=== PATIENT | female | born 1995 | race Caucasian/White ===

== ENCOUNTER → 2019-11-23 14:25 | Outpatient (CLI) | payer BC, SELFPAY ==
--- NOTE | ~2019-11-23 | US_ITS ---
US breast LT complete DATE: 11/23/2019 14:38 INDICATION: Left breast pain TECHNIQUE: Complete left breast ultrasound examination COMPARISON: None FINDINGS: No suspicious solid lesion or shadowing is detected. No cyst is identified. IMPRESSION: BI-RADS 1: Negative Reviewed, dictated and finalized at [facility]. Reviewed, dictated and finalized at location [facility]. ASSEMBLER IMPRESSION: BI-RADS 1: Negative
== END ==
PROVIDERS: Visit Provider Advanced Practice Midwife
DX: N64.4 Mastodynia (principal)
CPT/HCPCS: 76641

== ENCOUNTER 2020-07-20 15:05 | Emergency (ER) | payer BC, SELFPAY ==
--- NOTE | 2020-07-20 15:22 | ED.URI ---
HPI - URI/Sore Throat General Chief Complaint: Abdominal Pain Stated Complaint: pain with deep breaths Time Seen by Provider: 07/20/20 15:22 Source: patient and RN notes reviewed History of Present Illness HPI Narrative: Patient is a 25-year-old female who presents to the urgent care with complaints of pain with deep breathing to the right upper abdomen. Patient states that she is noticed that occur very briefly in the past but nothing has lasted or been very consistent like this last episode. Patient states that last episode started last night after eating spicy hot stuffed red peppers. Patient denies of any history of gallbladder issues. Denies of any pain through to the back or down the right arm. Denies of any nausea or vomiting. States that she has never related her diet to symptoms. Patient currently states that she is having no pain at this time until she takes a deep breath. Denies of any fever, nausea, vomiting. States that she has taken Tums without any improvement. Patient also stated that she take mag citrate assuming that she may be constipated. Otherwise, no other acute complaints. No acute distress noted. Patient aware of the plan of care. Some parts of this dictation were generated by voice recognition software and may contain typographical and/or grammatical inaccuracies. Related Data Home Medications Medication Instructions Recorded Confirmed norgestimate-ethinyl estradiol 1 tablet PO DAILY 07/20/20 07/20/20 Allergies Allergy/AdvReac Type Severity Reaction Status Date / Time No Known Allergies Allergy Verified 07/20/20 15:39 Review of Systems Review of Systems: Narrative: CONSTITUTIONAL: Denies fever, chills, or sweats. EYES: Denies visual changes, redness, or discharge. ENT: Denies rhinorrhea, congestion, sore throat, or otalgia. CARDIOVASCULAR: Denies chest pain, palpitations, or edema. RESPIRATORY: Denies cough or dyspnea. GASTROINTESTINAL: Reports of upper right abdominal pain with deep breathing GENITOURINARY: Denies dysuria or hematuria. SKIN: Denies rash or itching. MUSCULOSKELETAL: Denies back pain, joint pain, or myalgia. NEUROLOGIC: Denies headache, numbness, or weakness. All other systems reviewed are negative, except as documented in HPI. PMFSH Comments At the time of my signature, I reviewed and agree with the nursing past medical, surgical, social, and family history. There is no relevant family history pertinent to the patient complaint. Exam Narrative: Exam Narrative: GENERAL: This is a well-nourished, well-developed patient, in no apparent distress. HEAD: normocephalic, atraumatic. EYES: PERRL. Sclera clear/white. Vision is grossly intact. EARS: External ears normal, auditory canals clear and without drainage, TMs normal without perforation. Hearing grossly intact. NOSE: External nose normal with no obvious nasal discharge, nares without redness, no rhinorrhea. THROAT: Mucous membranes moist, posterior pharynx clear. NECK: Neck supple CARDIOVASCULAR: Regular rate and rhythm without murmurs, gallops, or rubs. RESPIRATORY: Clear to auscultation. Breath sounds equal bilaterally. No wheezes, rales, or rhonchi. GASTROINTESTINAL: Abdomen soft, non-tender, nondistended. Bowel sounds are active. No hepato-splenomegaly, or palpable masses. No guarding. Pain not reproducible with palpation. Negative obturator SKIN: warm, intact with no suspicious lesions or rash, good texture and turgor. NEURO: awake, alert, and oriented to person, place and time. There were no obvious focal neurologic abnormalities. EXTREMITIES: No clubbing, cyanosis, or edema. Course Vital Signs Vital signs: Vital Signs Temperature 98.3 F 07/20/20 15:25 Pulse Rate 115 H 07/20/20 15:25 Respiratory Rate 07/20/20 15:25 Blood Pressure 135/88 07/20/20 15:25 Pulse Oximetry 100 07/20/20 15:25 Temperature 98.3 F 07/20/20 15:25 Pulse Rate 115 H 07/20/20 15:25 Respiratory Rate 07/20/20 1
[2020-07-20 15:25] VITALS: BP 135/88; PULSE 115; RESP 18; TEMP 36.8; O2SAT 100
== END 2020-07-20 15:55 | disposition home or self-care (01) ==
PROVIDERS: Emergency Provider Nurse Practitioner Family
DX: R10.11 Right upper quadrant pain (principal); K21.9 Gastro-esophageal reflux disease without esophagitis
CPT/HCPCS: 99201; G0463

== ENCOUNTER 2023-09-23 15:53 | Outpatient (CLI) | payer BC, SELFPAY ==
[2023-09-23] VITALS (9 sets, daily range): BP systolic 123–136; BP diastolic 78–97; PULSE 87–100
[2023-09-23 16:28] LABS: Basophils Percent Auto 0.4 % (0.2-1.2); Eosinophils Absolute Auto 0.1 K/mm3 (0-0.3); Eosinophils Percent Auto 0.6 % (0-4.4); Hematocrit 35.9 % (37.0-47.0); Hemoglobin 10.5 g/dL (12.0-15.0); Immature Granulocyte Absolute 0.07 K/mm3 (0.00-0.031); Immature Granulocyte Percent A 0.6 % (0-0.5); Lymphocytes Absolute Auto 1.84 K/mm3 (0.9-3.2); Lymphocytes Percent Auto 16.9 % (18.3-44.2); Mean Corpuscular HGB Conc 29.2 g/dl (32-36); Mean Corpuscular Hemoglobin 23.9 pg (26-34); Mean Corpuscular Volume 81.8 fl (80-100); Mean Platelet Volume 10.1 fl (7.4-10.4); Monocytes Absolute Auto 1.1 K/mm3 (0.1-0.6); Monocytes Percent Auto 9.7 % (2.6-8.5); Neutrophils Absolute Auto 7.8 K/mm3 (1.3-6.7); Neutrophils Percent Auto 71.8 % (45.5-73.1); Platelet Count Result 295 k/mm3 (150-375); Red Blood Count 4.39 M/mm3 (4.2-5.4); Red Cell Distribution Width 15.1 % (11.5-14.5); White Blood Count 10.9 K/mm3 (4.5-10.0)
[2023-09-23 16:37] LABS: Alanine Aminotransferase 17 U/L (6-35); Albumin Level 3.5 g/dL (3.5-5.1); Alkaline Phosphatase 179 U/L (38-126); Anion Gap 9 mmol/L (8-16); Aspartate Amino Transferase 23 U/L (14-36); Bilirubin,Total 0.4 mg/dL (0.2-1.3); Blood Urea Nitrogen 9 mg/dL (7-17); Calcium 9.3 mg/dL (8.4-10.2); Carbon Dioxide 22 mmol/L (22-30); Chloride 104 mmol/L (98-107); Estimated Glomerular Filt Rate > 60; Glucose 103 mg/dL (65-110); Potassium 4.2 mmol/L (3.4-5.0); Sodium 135 mmol/L (137-145); Uric Acid 3.8 mg/dL (2.5-7.5)
[2023-09-23 16:46] LABS: Appearance Urine Cloudy (Clear); Bacteria Urine 3+ /hpf; Bilirubin Urine Negative (Negative); Blood Urine Negative (Negative); Color Urine Yellow (Yellow); Glucose Urine UA Negative (Negative); Ketones Urine Negative (Negative); Leukocyte Esterase Ur 2+ LEU/UL (NEGATIVE); Need Manual Microscopic Reviewed; Nitrate Urine Negative (Negative); Protein Urine Trace mg/dL (Negative); RBC Urine 0-2 /hpf (0-2); Specific Grav Ur 1.014 (1.001-1.035); Squamous Epithelial Cell Urine Few /hpf (Few); Urobilinogen Urine 0.2 mg/dL (<2.0); WBC Urine 51-100 /hpf (0-3)
[2023-09-23 16:47] LABS: Add Urine Microscopic? YES
--- NOTE | 2023-09-23 17:00 | PC.NURSE ---
tracing reviewed with Dr. Thomason. MD ibarra with monitoring being discontinued. Pt P/C ratio has not resulted yet, however all other labs reported to Dr. Miller. HERNANDEZ would like pt to continue receiving blood pressure monitoring until the ratio comes back.
[2023-09-23 18:03] LABS: Creatinine Urine 102.9 mg/dL; Total Protein Urine Random 27 mg/dL; Ur Ttl Prot Creatinine Ratio 0.26 mg/mg (0-0.20)
== END 2023-09-23 18:12 | disposition home or self-care (01) ==
LOC: ANHOBOP 15:57 → ANHOBPP 15:57
PROVIDERS: Visit Provider Obstetrics & Gynecology
DX: O13.9 Gestational [pregnancy-induced] hypertension without significant proteinuria, unspecified trimester (principal)
CPT/HCPCS: 36415; 59025; 80053; 81001; 82570; 84156; 84550; 85025; 87086; 99199

== ENCOUNTER 2023-09-24 13:04 | Inpatient (IN) | payer BC, SELFPAY ==
[2023-09-17] MEDS: OXYTOCIN 30 UNITS/NS 500 ML 30 UNITS/500 ML BAG 4 UNITS IV CONT (16:00)
[2023-09-24] VITALS (114 sets, daily range): BP systolic 87–141; BP diastolic 45–96; PULSE 68–114; TEMP 36.6–36.7; O2SAT 95–100; BMI 35.5
[2023-09-24 14:14] LABS: Basophils Percent Auto 0.3 % (0.2-1.2); Eosinophils Absolute Auto 0.1 K/mm3 (0-0.3); Eosinophils Percent Auto 0.9 % (0-4.4); Hematocrit 36.2 % (37.0-47.0); Hemoglobin 10.9 g/dL (12.0-15.0); Immature Granulocyte Absolute 0.09 K/mm3 (0.00-0.031); Immature Granulocyte Percent A 0.8 % (0-0.5); Lymphocytes Absolute Auto 2.16 K/mm3 (0.9-3.2); Lymphocytes Percent Auto 18.2 % (18.3-44.2); Mean Corpuscular HGB Conc 30.1 g/dl (32-36); Mean Corpuscular Volume 79.7 fl (80-100); Monocytes Absolute Auto 1.2 K/mm3 (0.1-0.6); Monocytes Percent Auto 10.3 % (2.6-8.5); Neutrophils Absolute Auto 8.3 K/mm3 (1.3-6.7); Neutrophils Percent Auto 69.5 % (45.5-73.1); Platelet Count Result 306 k/mm3 (150-375); Red Blood Count 4.54 M/mm3 (4.2-5.4); White Blood Count 11.9 K/mm3 (4.5-10.0)
--- NOTE | 2023-09-24 14:15 | LDADM ---
This patient, Camille Mijares, was admitted to Labor/Delivery/Recovery 105 on 09/24/23 at 13:04. Plans for labor, pain management and were discussed with patient. Patient/family oriented to hospital policies and general routines including ID bracelet, bed and alarms, visiting hours, pain management, procedures, bathroom and other care routines, personal items, smoking policy, room service/diet and guest tray routines, infant security routines, and visiting hours. Patient/Family are encouraged to report perceived risks to care and to ask questions if they do not understand what they are told or what they should do. See OBIX for further documentation.
[2023-09-24 14:24] LABS: Alanine Aminotransferase 19 U/L (6-35); Albumin Level 3.4 g/dL (3.5-5.1); Alkaline Phosphatase 203 U/L (38-126); Anion Gap 9 mmol/L (8-16); Aspartate Amino Transferase 23 U/L (14-36); Bilirubin,Total 0.4 mg/dL (0.2-1.3); Blood Urea Nitrogen 9 mg/dL (7-17); Calcium 9.6 mg/dL (8.4-10.2); Carbon Dioxide 20 mmol/L (22-30); Chloride 105 mmol/L (98-107); Estimated Glomerular Filt Rate > 60; Glucose 84 mg/dL (65-110); Potassium 4.2 mmol/L (3.4-5.0); Sodium 134 mmol/L (137-145)
[2023-09-24] MEDS: LACTATED RINGERS 1,000 ML 125 ML IV CONT ×2 (15:05→23:20)
--- NOTE | 2023-09-24 16:39 | WPDANESEPP ---
Anes - Eval Pre Procedure Procedure: labor epidural Date/Time: 09/24/23 16:39 Pre Op Diagnosis: IOL Patient Data Age: 28 Gender: F Height: 1.65 m Weight: 96.8 kg Last Vital Signs Pulse 95 09/24/23 16:31 BP 130/96 H 09/24/23 16:31 O2 Del Method Room Air 09/24/23 14:15 Allergies Allergy/AdvReac Type Severity Reaction Status Date / Time No Known Allergies Allergy Verified 07/20/20 15:39 Home Medications Medication Instructions Recorded Confirmed Type cetirizine 10 mg tablet (Zyrtec) 10 mg PO DAILY 09/24/23 09/24/23 History levothyroxine 25 mcg tablet 25 mcg PO DAILY 09/24/23 09/24/23 History vit no.95-ferrous 1 tablet PO DAILY 09/24/23 09/24/23 History fumarate 28 mg-folic acid 800 mcg tablet () Laboratory Tests 09/24/23 09/24/23 13:57 13:58 WBC 11.9 H K/mm3 (4.5-10.0) RBC 4.54 M/mm3 (4.2-5.4) Hgb 10.9 L g/dL (12.0-15.0) Hct 36.2 L % (37.0-47.0) MCV 79.7 L fl (80-100) MCH 24.0 L pg (26-34) MCHC 30.1 L g/dl (32-36) RDW 15.0 H % (11.5-14.5) Plt Count 306 k/mm3 (150-375) MPV 10.0 fl (7.4-10.4) Immature Gran % (Auto) 0.8 H % (0-0.5) Neut % (Auto) 69.5 % (45.5-73.1) Lymph % (Auto) 18.2 L % (18.3-44.2) [place] % (Auto) 10.3 H % (2.6-8.5) Eos % (Auto) 0.9 % (0-4.4) Baso % (Auto) 0.3 % (0.2-1.2) Lymph # (Auto) 2.16 K/mm3 (0.9-3.2) [place] # (Auto) 1.2 H K/mm3 (0.1-0.6) Eos # (Auto) 0.1 K/mm3 (0-0.3) Baso # (Auto) 0.0 K/mm3 (0.0-0.1) Abs Immat Gran (auto) 0.09 H K/mm3 (0.00-0.031) Absolute Neuts (auto) 8.3 H K/mm3 (1.3-6.7) Absolute Nucleated RBC 0.0 K/mm3 (0.0-0.012) Nucleated RBC % 0.0 % (0.0-0.2) Sodium 134 L mmol/L (137-145) Potassium 4.2 mmol/L (3.4-5.0) Chloride 105 mmol/L (98-107) Carbon Dioxide 20 L mmol/L (22-30) Anion Gap 9 mmol/L (8-16) BUN 9 mg/dL (7-17) Creatinine 0.60 L mg/dL (0.7-1.0) Estim Creat Clear Calc Not Reportable Estimated GFR > 60 (59 - ) Glucose 84 mg/dL (65-110) Uric Acid 4.0 mg/dL (2.5-7.5) Calcium 9.6 mg/dL (8.4-10.2) Total Bilirubin 0.4 mg/dL (0.2-1.3) AST 23 U/L (14-36) ALT 19 U/L (6-35) Alkaline Phosphatase 203 H U/L (38-126) Total Protein 7.0 g/dL (6.3-8.2) Albumin 3.4 L g/dL (3.5-5.1) RPR Pending Blood Type O Positive Antibody Screen Negative Patient hx anesthesia problems: none Family hx anesthesia problems: none Results Review: All pre-operative results and documents have been reviewed as part of the pre-operative evaluation. [facility] Past Medical History Medical History (Updated 09/24/23 @ 16:45 by Misty Mueller CRNA) GERD (gastroesophageal reflux disease) Obese PIH ( induced hypertension) Family History Family History Mother Pacemaker Social History Social History Smoking status: Never smoker Second hand tobacco smoke exposure: No Substance use: never Lack of Transportation: No Lack of Food: Never True Current Housing: I Have Housing Concerned About Future Housing: No Difficulty Paying Gas/Electric Bills: No Difficulty Paying for Meds: No Currently Unemployed: No Education: Bachelor's Degree Difficulty w/ Childcare or Family Care: No Spiritual care concerns: No Exam Day of Procedure 09/24/23 16:39 Patient weight: obese Heart: regular rate and rhythm Lungs: normal air movement Airway: Mallampati scale Neurological: alert and oriented
--- NOTE | 2023-09-24 17:44 | PM.IMHP ---
H&P: HPI History of Present Illness Date/Time: 09/24/23 17:44 Chief Complaint: Induction of labor, gestational HTN Narrative: Patient presents for induction of labor indicated for gestational HTN. She denies symptoms of preeclampsia. PC ratio on 09/23 was 0.26. BPs 120s-140s/80s-90s over the past two days, meeting criteria for gHTN. Induction started with pitocin. Review of Systems Review of Systems: All systems reviewed & are unremarkable except as noted in HPI and below PMFSH Past Medical History Medical History GERD (gastroesophageal reflux disease) Obese PIH ( induced hypertension) Family History Family History Mother Pacemaker Social History Social History Smoking status: Never smoker Second hand tobacco smoke exposure: No Substance use: never Lack of Transportation: No Lack of Food: Never True Current Housing: I Have Housing Concerned About Future Housing: No Difficulty Paying Gas/Electric Bills: No Difficulty Paying for Meds: No Currently Unemployed: No Education: Bachelor's Degree Difficulty w/ Childcare or Family Care: No Spiritual care concerns: No Meds Home Medications and Allergies Home Medications Medication Instructions Recorded Confirmed Type cetirizine 10 mg tablet (Zyrtec) 10 mg PO DAILY 09/24/23 09/24/23 History levothyroxine 25 mcg tablet 25 mcg PO DAILY 09/24/23 09/24/23 History vit no.95-ferrous 1 tablet PO DAILY 09/24/23 09/24/23 History fumarate 28 mg-folic acid 800 mcg tablet () Allergies Allergy/AdvReac Type Severity Reaction Status Date / Time No Known Allergies Allergy Verified 07/20/20 15:39 Vital Signs Vital Signs - 24 hr 09/24/23 13:56 09/24/23 14:30 09/24/23 15:01 Pulse Rate 95 102 H 92 Blood Pressure 127/80 133/81 133/81 Oxygen Delivery 09/24/23 15:30 09/24/23 16:31 09/24/23 17:01 Pulse Rate 94 95 88 Blood Pressure 138/84 130/96 H 126/79 Oxygen Delivery 09/24/23 14:15 Pulse Rate Blood Pressure Oxygen Delivery Room Air Exam Const: General: comfortable, no acute distress and in distress HENMT: Face/Nose/Sinus: Normal nares present Mouth: Yes moist mucous membranes Eyes: General: appearance normal, both eyes and all related structures Neck: Neck: supple Resp: Effort & Inspection: normal respiratory effort Cardio: Rate: regular rate GI: GI Palp: Yes Soft to palpation Skin: General skin exam: normal color and no rashes or lesions noted Neuro: Speech: normal speech Sensory Exam: normal sensation Psych: Mental Status: mental status grossly normal H&P: Results Labs Labs: Short CBC 09/24/23 Range/Units 13:57 WBC 11.9 H (4.5-10.0) K/mm3 Hgb 10.9 L (12.0-15.0) g/dL Hct 36.2 L (37.0-47.0) % Plt Count 306 (150-375) k/mm3 BMP 09/24/23 13:57 Sodium 134 L Potassium 4.2 Chloride 105 Carbon Dioxide 20 L BUN 9 Creatinine 0.60 L Glucose 84 Calcium 9.6 Liver Function 09/24/23 Range/Units 13:57 Total Bilirubin 0.4 (0.2-1.3) mg/dL AST 23 (14-36) U/L ALT 19 (6-35) U/L Alkaline Phosphatase 203 H (38-126) U/L Albumin 3.4 L (3.5-5.1) g/dL Assessment and Plan Assessment and plan (1) Gestational HTN: Code(s): O13.9 - Gestational [-induced] hypertension without significant proteinuria, unspecified trimester Status: Acute Assessment and Plan: Induction of labor for gHTN. Monitor closely for signs/symptoms of preeclampsia. Monitor BP closely. Plan AROM performed at 1745 with return of clear fluid. Continue pitocin per protocol.
[2023-09-24] MEDS: CALCIUM CARBONATE (TUMS) 500 MG (200 MG ELEMENTAL) PO (22:29)
[2023-09-25] VITALS (259 sets, daily range): BP systolic 60–145; BP diastolic 45–105; PULSE 74–145; RESP 11–20; TEMP 36.4–37.2; O2SAT 90–100
[2023-09-25] MEDS: CALCIUM CARBONATE (TUMS) 500 MG (200 MG ELEMENTAL) 600 MG PO (05:09)
[2023-09-25] MEDS: diphenhydrAMINE HCl INJ 50 MG/ML VIAL 25 MG IV PUSH (05:10)
--- NOTE | 2023-09-25 05:47 | PM.OBPNLAB ---
Pain Control Date/time seen: 09/25/23 05:47 SVE /0, IUPC placed, pt c/o tail bone pain, anesthesia notified
[2023-09-25] MEDS: LACTATED RINGERS 1,000 ML 125 ML IV CONT ×3 (07:18→13:30)
[2023-09-25] MEDS: AMPICILLIN 2 GM/NS 100 ML 2 GM/100 ML BAG IVPB (11:34)
--- NOTE | 2023-09-25 12:22 | PM.OBPNLAB ---
Pain Control Date/time seen: 09/25/23 12:22 Pelvic Exam Dilation (cm): 8 Effacement (%): 90 station: 0 Amniotic membrane status: Ruptured Contractions Monitor mode: Internal Contraction frequency: 2 Contraction pattern: Regular Assessment and Plan Comments: At bedside. Patient has been 8cm since 0600 with inadequate contractions. Have attempted spinning babies, pit break, redose of epidural, however patient continues to have left sided pain and no cervical change. SVE performed, with anterior swelling. IUPC in position, inadequate MVUs on 18 of pitocin. status category I. Discussed options with patient including continued with induction of labor as status is reassuring vs c section. Patient desires primary c section. r/b/a discussed, anesthesia aware.
[2023-09-25] MEDS: AZITHROMYCIN 500 MG/NS 250 ML 500 MG/250 ML BAG 250 MG IVPB (12:30)
--- NOTE | 2023-09-25 12:34 | P.PNAN_ITS ---
Anes - Eval Final PreProcedure Day of Procedure 09/25/23 12:34 Patient weight: obese Heart: regular rate and rhythm Lungs: clear to auscultation Airway: Mallampati scale class II Neurological: alert and oriented ASA classification: III Emergent: no Anesthetic plan: proceed Anesthesia type and monitoring: regional spinal and standard monitoring Other findings: plan SAB epid inadequate for C/S Results Review: All pre-operative results and documents have been reviewed as part of the pre- operative evaluation. Informed Consent: The patient's anesthetic plan and its attendant risks and benefits were discussed with the patient/family/POA. Questions were solicited and answers provided to the satisfaction of the patient/family/POA.
[2023-09-25] MEDS: ceFAZolin 2 GM/D5W 50 ML 2 GM/50 ML BAG IVPB (12:57)
[2023-09-25 13:18] LABS: Rapid Plasma Reagin Non-Reactive (NonReactive)
[2023-09-25] MEDS: KETOROLAC 30 MG/ML VIAL (*BKC) IV PUSH (14:02)
--- NOTE | 2023-09-25 14:05 | P.PCNOB_ITS ---
OB - Delivery Note Procedure Delivery date: 09/25/23 Pre-op diagnosis: Arrest of Dilation and Gestational Hypertension Post-op Diagnosis: Same Induction method: Per Pitocin Protocol Delivery augmentation: Rupture of Membranes Delivery monitor: External FHT and Internal Uterine Prior to decision for section, ACOG/SMFM labor guidelines were considered and discussed with the patient and staff. Decision made to proceed with the section.: Yes Procedure Performed: Primary Surgeon: Sy Thomason MD Anesthesia type: Spinal Description of Procedure/Findings: The patient was taken to the operating room where she was placed in the dorsal supine position with a leftward tilt. The electronic monitor was placed and heart rate was found to be reassuring. She was prepped and draped in the normal sterile fashion, and anesthesia was checked to be adequate. A Pfannenstiel skin incision was made with the scalpel and carried through to the underlying layer of fascia with the scalpel. The fascia was incised in the midline and the incision extended laterally with the Dorman scissors. The superior aspect of the fascial incision was then grasped with Jonathan clamps, elevated, and the underlying rectus muscles dissected off bluntly. Attention was then turned to the inferior aspect of the fascial incision, which in similar fashion was grasped, elevated, and the rectus muscles dissected off.? The rectus muscles were then in the midline, and the peritoneum entered bluntly. The peritoneal incision was extended superiorly and inferiorly with good visualization of the bladder. The bladder blade was then inserted and the vesicouterine peritoneum identified, grasped with a Peon clamp, and entered sharply with the Metzenbaum scissors. The incision was extended laterally and the bladder flap created digitally. With the bladder blade providing retraction and visualization, the lower uterine segment was incised in a transverse fashion with the scalpel. The uterine incision was then extended laterally. The bladder blade was removed and the 's head was elevated and delivered atraumatically. The remainder of the was then delivered without difficulty, and the 's nose and mouth were suctioned with the bulb suction. The umbilical cord was doubly clamped and cut. The was then handed off to the waiting nursing staff. Specimens then obtained as listed below. The placenta was then removed manually and the uterus was exteriorized and cleared of all clots and debris. The uterine incision was repaired with 0- Monocryl in a running, interlocked fashion. A second layer of the same suture imbricated and obtained excellent hemostasis. The posterior cul-de-sac was manually cleared of all clots and debris. The uterus was returned to the abdomen. The gutters were then manually cleared of all clots The fascia was reapproximated with 0-Vicryl in a running fashion. The subcutaneous tissues were irrigated with warmed normal saline, and hemostasis was assured. The skin was closed with 4-0 Biosyn in a subcuticular stitch and skin glue was applied. Fundal pressure was applied to express remaining intrauterine clots and debris. The patient tolerated the procedure well. Sponge, lap, and needle counts were correct times three per nursing. The patient was taken to the recovery room in stable condition. Specimen: No Estimated Blood Loss: 660 [place] Baby Weeks of gestation at delivery: 39 Weight (pounds): 9 Weight (ounces): 10 presentation: vertex position: Right Occiput Posterior Placenta delivery description: Manual Removal
--- NOTE | 2023-09-25 14:38 | PC.NURSE ---
heart tones obtained in OR after spinal placement and before prepping patient for section. FHT 135 at 1308.
[2023-09-25] MEDS: OXYTOCIN 30 UNITS/NS 500 ML 30 UNITS/500 ML BAG 125 UNITS IV CONT (15:02)
--- NOTE | 2023-09-25 16:18 | OBPPTRN ---
Patient transferred to post room # 288 via stretcher. Support person present. Oriented to unit, room, information board, rooming in, admission packet and security measures. Patient verbalizes understanding.
[2023-09-26 05:30] VITALS: BP 101/64; PULSE 103; RESP 18; TEMP 36.6; O2SAT 97
[2023-09-26] MEDS: IBUPROFEN 600 MG TABLET PO ×3 (05:38→21:30)
[2023-09-26] MEDS: HYDROcodone/acetaminophen (*CRX) 5-325 MG TABLET 1 TAB PO ×3 (05:38→21:30)
[2023-09-26 06:29] LABS: Basophils Percent Auto 0.3 % (0.2-1.2); Eosinophils Absolute Auto 0.1 K/mm3 (0-0.3); Eosinophils Percent Auto 0.9 % (0-4.4); Hematocrit 28.6 % (37.0-47.0); Hemoglobin 8.6 g/dL (12.0-15.0); Immature Granulocyte Absolute 0.08 K/mm3 (0.00-0.031); Immature Granulocyte Percent A 0.5 % (0-0.5); Lymphocytes Absolute Auto 1.74 K/mm3 (0.9-3.2); Lymphocytes Percent Auto 11.3 % (18.3-44.2); Mean Corpuscular HGB Conc 30.1 g/dl (32-36); Mean Corpuscular Hemoglobin 24.1 pg (26-34); Mean Corpuscular Volume 80.1 fl (80-100); Mean Platelet Volume 10.1 fl (7.4-10.4); Monocytes Absolute Auto 1.4 K/mm3 (0.1-0.6); Monocytes Percent Auto 8.8 % (2.6-8.5); Neutrophils Percent Auto 78.2 % (45.5-73.1); Platelet Count Result 216 k/mm3 (150-375); Red Blood Count 3.57 M/mm3 (4.2-5.4); Red Cell Distribution Width 15.5 % (11.5-14.5); White Blood Count 15.4 K/mm3 (4.5-10.0)
[2023-09-26] MEDS: SIMETHICONE 80 MG TAB.CHEW PO ×3 (07:35→14:02)
[2023-09-26] MEDS: LORATADINE 10 MG TABLET PO (07:35)
[2023-09-26] MEDS: DOCUSATE SODIUM 100 MG CAPSULE PO ×2 (07:35→17:19)
[2023-09-26] MEDS: LEVOTHYROXINE SODIUM 25 MCG TABLET PO (07:35)
[2023-09-26 08:00] VITALS: PULSE 84; RESP 18; O2SAT 99
[2023-09-26 08:50] VITALS: BP 94/58; PULSE 84; RESP 18; TEMP 36.5; O2SAT 99
--- NOTE | 2023-09-26 10:10 | WPDANLDPN2 ---
Anes-Prog Note L&D Date/Time: 09/26/23 10:10 Comfortable throughout: section Neuraxial method: spinal Epidural/Spinal procedure site: clean & non-tender Neuro status: Neuro function grossly intact. Cardiovascular status: normal Respiratory status: normal Airway patency: baseline Mental status: baseline Post-Op hydration status: normal Vital Signs: Last Vital Signs Temp 97.9 F 09/26/23 05:30 Pulse 103 H 09/26/23 05:30 Resp 18 09/26/23 05:30 BP 101/64 09/26/23 05:30 Pulse Ox 97 09/26/23 05:30 O2 Del Method Room Air 09/25/23 16:00 Pain score (VAS): 2 I/O: Intake & Output 09/25/23 09/26/23 09/26/23 23:59 07:59 15:59 Intake Total 1200 Output Total 350 2800 Balance -350 -1600 Post-procedural complaints: pruritis mild, no treatment Patient feedback: Patient satisfied with anesthetic care.
--- NOTE | 2023-09-26 10:11 | WPDANLDNPN2 ---
Anes-Prog Note L&D-Neuraxial Date/Time: 09/26/23 10:11 Neuraxial medications: intrathecal PF morphine Opiod-related complaints: pruritis mild, no treatment Patient feedback: Patient satisfied with post-operative pain management.
[2023-09-26] MEDS: MULTIVIT/MIN/PREN/FOL AC/IRON TABLET 1 TAB PO (10:50)
[2023-09-26] MEDS: HYDROcodone/acetaminophen (*CRX) 10-325 MG TABLET 1 TAB PO ×2 (10:50→14:00)
[2023-09-26] MEDS: POLYSACCHARIDE IRON COMPLEX 150 MG CAPSULE PO ×2 (10:50→17:18)
[2023-09-26] MEDS: LIDOCAINE 5% PATCH 1 PATCH TRANSDERM (10:51)
[2023-09-26 12:30] VITALS: BP 108/69; PULSE 107; RESP 16; TEMP 36.8; O2SAT 97
--- NOTE | 2023-09-26 12:30 | P.PNOB_ITS ---
OB - PN: Subj Subjective Date/time seen: 09/26/23 08:00 Interval history: Doing well, POD#1 Tolerating general diet Pain well controlled Not yet passing flatus Voiding spontaneously Baby doing well, working on feeding, desires circ OB - PN: Obj Data Labs 09/26/23 05:47 09/24/23 13:57 Labs: Laboratory Results - last 24 hr 09/24/23 09/26/23 13:57 05:47 WBC 15.4 H RBC 3.57 L Hgb 8.6 L Hct 28.6 L MCV 80.1 MCH 24.1 L MCHC 30.1 L RDW 15.5 H Plt Count 216 MPV 10.1 Immature Gran % (Auto) 0.5 Neut % (Auto) 78.2 H Lymph % (Auto) 11.3 L [place] % (Auto) 8.8 H Eos % (Auto) 0.9 Baso % (Auto) 0.3 Lymph # (Auto) 1.74 [place] # (Auto) 1.4 H Eos # (Auto) 0.1 Baso # (Auto) 0.0 Abs Immat Gran (auto) 0.08 H Absolute Neuts (auto) 12.0 H Absolute Nucleated RBC 0.0 Nucleated RBC % 0.0 RPR Non-reactive OB - PN A/P Plan day: 1 Plan: routine care Comments: Desires circ, baby working on feeding so not cleared for circ today. Time Spent With Patient Time: Total time spent is greater than 50% in coordination of care (as documented) at patient's floor/unit and/or counseling patient: Review of Systems Review of Systems: All systems reviewed & are unremarkable except as noted in HPI and below Exam Const: General: comfortable, no acute distress and in distress HENMT: Face/Nose/Sinus: Normal nares present Mouth: Yes moist mucous membranes Eyes: General: appearance normal, both eyes and all related structures Neck: Neck: supple Resp: Effort & Inspection: normal respiratory effort Cardio: Rate: regular rate GI: GI Palp: Yes Soft to palpation Skin: General skin exam: normal color and no rashes or lesions noted Neuro: Speech: normal speech Sensory Exam: normal sensation Psych: Mental Status: mental status grossly normal
--- NOTE | 2023-09-26 14:01 | PC.NURSE ---
5845 Introductions were made, then consulted with patient to assess needs related to . Discussed with mother her?plans to feed?her infant and the?experience so far. Resources provided for inpatient and outpatient services with the feeding sheet, mom/baby guide and name written on the communication board. Mother would like assistance with pumping but is with family and will call when family leaves. Mother voiced understanding of information. Reported to the Primary RN.
--- NOTE | 2023-09-26 15:47 | PC.NURSE ---
1415 Mother needed education regarding use of the pump for . Encouraged to pump for at least 15 minutes every 3 hours and demonstrated proper use of the Medela pump. Mom was able to pump without difficulties and denies soreness. Colostrum noted after pumping and she will give this to baby at next feeding. Mother voiced understanding of information and will call if there is a request for assistance. Reported to the Primary RN.
[2023-09-26 16:00] VITALS: BP 111/71; PULSE 94; RESP 16; TEMP 36.8; O2SAT 99
[2023-09-26 19:42] VITALS: BP 101/64; PULSE 94; RESP 16; TEMP 36.8
[2023-09-27 04:00] VITALS: BP 106/70; PULSE 95; RESP 16; TEMP 36.4
[2023-09-27] MEDS: HYDROcodone/acetaminophen (*CRX) 5-325 MG TABLET 1 TAB PO ×3 (04:00→14:57)
[2023-09-27] MEDS: IBUPROFEN 600 MG TABLET PO ×2 (04:00→09:51)
[2023-09-27] MEDS: LEVOTHYROXINE SODIUM 25 MCG TABLET PO (06:37)
[2023-09-27 06:58] VITALS: BP 105/66; PULSE 87; RESP 16; TEMP 36.6; O2SAT 96
[2023-09-27 07:00] VITALS: PULSE 87; RESP 16; O2SAT 96
--- NOTE | 2023-09-27 09:26 | PM.OBPNVD ---
OB - PN: Subj Subjective Date/time seen: 09/27/23 09:26 Interval history: Doing well, POD#1 Tolerating general diet Pain well controlled Not yet passing flatus Voiding spontaneously Baby doing well, working on feeding, desires circ Patient comments: no complaints, pain well controlled, incisional pain, tolerating diet and flatus present OB - PN: Obj Data Labs 09/26/23 05:47 09/24/23 13:57 OB - PN A/P Plan day: 2 Plan: routine care Comments: POD#2 LTCS - no problems, Time Spent With Patient Time: Total time spent is greater than 50% in coordination of care (as documented) at patient's floor/unit and/or counseling patient: Exam Const: General: comfortable, no acute distress and alert Resp: Effort & Inspection: normal respiratory effort Auscultation: no crackles, no rales and no rhonchi Cardio: Rate: regular rate Heart sounds: no click, no murmurs and no rubs GI: Inspection: non-distended Auscultation: normal bowel sounds Other: Incision - CDI Extrem: General: normal to inspection, no pedal edema and no calf tenderness
--- NOTE | 2023-09-27 09:28 | P.DS_ITS ---
DS: Admitting Diagnosis Discharge Date September 27, 2023 Admitting Diagnosis term DS: Discharge Diagnosis Discharge Diagnosis (1) delivery delivered: Code(s): O82 - Encounter for delivery without indication Status: Acute OB - DS: Summary OB Procedures : None OB Procedures Intrapartum: OB Procedures: : None Peripartum Data Procedures: Procedures Operation Date: 09/25/23 12:40 Actual Procedure Side Surgeon p Section Not Applicable Sy Thomason MD Time Spent with Patient Time attestation: Total time spent providing and/or coordinating discharge services: Discharge Plan Discharge Discharging Clinician: Lizzy Mehta Patient Disposition: Home, Self-Care Activity: pelvic rest Diet: regular Patient Instructions: Antibiotic Form Stand Alone Forms: General Discharge Information Follow-up/Referrals: Lizzy Mehta MD [Physician] - Discharge Medications: New oxycodone-acetaminophen 5-325 mg tablet 1 tablet PO Q4H PRN (Reason: pain) Qty: 25 0RF Continued cetirizine [Zyrtec] 10 mg Tablet 10 mg PO DAILY levothyroxine 25 mcg tablet 25 mcg PO DAILY PNV cmb#95-ferrous fumarate-FA [] 28 mg iron- 800 mcg Tablet 1 tablet PO DAILY Date of admission: 09/24/23 13:04 Primary Care Provider: PHYSICIAN,ACID CRANE OPERATOR Admitting Provider: Sy Thomason Attending physician on admission: Sy Thomason Condition: Stable
[2023-09-27] MEDS: DOCUSATE SODIUM 100 MG CAPSULE PO (09:52)
[2023-09-27] MEDS: MULTIVIT/MIN/PREN/FOL AC/IRON TABLET 1 TAB PO (09:52)
[2023-09-27] MEDS: POLYSACCHARIDE IRON COMPLEX 150 MG CAPSULE PO (09:52)
[2023-09-27] MEDS: LORATADINE 10 MG TABLET PO (09:52)
[2023-09-27 12:00] VITALS: BP 110/72; PULSE 85; RESP 16; TEMP 36.7; O2SAT 97
--- NOTE | 2023-09-27 14:36 | PC.NURSE ---
Patient viewed the discharge video [facility], The First Two Weeks . Patient was given the opportunity and encouraged to ask questions. Patient verbalized understanding of information shared and has been given the mother/baby guide for home reference.
[2023-09-27] MEDS: MEASLES,MUMPS,RUBELLA VACCINE 0.5 ML VIAL SUB-Q (14:56)
[2023-09-29 13:46] VITALS: BP 132/66; PULSE 94; RESP 18; TEMP 36.7; O2SAT 100
== END 2023-09-27 16:15 | disposition home or self-care (01) | DRG 807 ==
LOC: ANHLDR 13:13 → ANHOB2 09-26 08:28 → ANHLDR 09-29 12:34 → ANHOB2 09-29 12:34
PROVIDERS: Admitting Provider Obstetrics & Gynecology; Visit Provider Obstetrics & Gynecology
PROC: 10E0XZZ Delivery of Products of Conception, External Approach (ICD-10-PCS; CPT 59514; principal; 2023-09-25 12:40)
DX: O13.4 Gestational [pregnancy-induced] hypertension without significant proteinuria, complicating childbirth (principal); Z37.0 Single live birth; Z3A.39 39 weeks gestation of pregnancy; O62.1 Secondary uterine inertia; O42.02 Full-term premature rupture of membranes, onset of labor within 24 hours of rupture
CPT/HCPCS: 36415; 80053; 84550; 85025; 86592; 86850; 86900; 86901; 90710; A9270; J0290; J0456; J0690; J1200; J1885; J2274; J2371; J2405; J2590; J2795; J7120